=== PATIENT | male | born 1995 | race Caucasian/White ===

== ENCOUNTER 2017-06-25 20:24 | Day surgery (SDC) | payer OTHER ==
[2017-06-25 21:50] LABS: BASO # 0.1 10^3/uL (0.0-0.2); BASO % 0.3 % (0.0-1.0); HEMATOCRIT 42.4 % (42.0-52.0); HEMOGLOBIN 14.5 g/dl (14.0-18.0); IMMATURE GRANULOCYTE % 0.4 % (0-3.0); LYMPH # 0.9 10^3/uL (1.5-6.5); LYMPH % 5.1 % (24.0-44.0); MEAN CORPUSCULAR HEMOGLOBIN 28.8 pg (27.0-33.0); MEAN CORPUSCULAR HGB CONC 34.2 g/dl (32.0-36.5); MEAN CORPUSCULAR VOLUME 84.3 fl (80.0-96.0); MONO # 0.5 10^3/uL (0.0-0.8); MONO % 2.5 % (0.0-5.0); NEUTROPHILS # 16.4 10^3/uL (1.8-7.7); NEUTROPHILS % 91.7 % (36.0-66.0); PLATELET COUNT, AUTOMATED 269 10^3/uL (150-450); RED BLOOD COUNT 5.03 10^6/uL (4.30-6.10); RED CELL DISTRIBUTION WIDTH 12.7 % (11.5-14.5); WHITE BLOOD COUNT 17.9 10^3/uL (4.0-10.0)
[2017-06-25 22:09] LABS: ALBUMIN 4.8 GM/DL (3.2-5.2); ALBUMIN/GLOBULIN RATIO 1.55 (1.00-1.93); ALKALINE PHOSPHATASE 83 U/L (45-117); ALT/SGPT 27 U/L (12-78); ANION GAP 7 MEQ/L (8-16); AST/SGOT 21 U/L (7-37); BILIRUBIN,TOTAL 1.6 MG/DL (0.2-1.0); BLOOD UREA NITROGEN 14 MG/DL (7-18); CALCIUM LEVEL 9.5 MG/DL (8.5-10.1); CARBON DIOXIDE LEVEL 29 MEQ/L (21-32); CHLORIDE LEVEL 102 MEQ/L (98-107); CREATININE FOR GFR 0.95 MG/DL (0.70-1.30); GLOMERULAR FILTRATION RATE > 60.0 (>60); GLUCOSE, FASTING 102 MG/DL (70-100); POTASSIUM SERUM 3.9 MEQ/L (3.5-5.1); SODIUM LEVEL 138 MEQ/L (136-145); TOTAL PROTEIN 7.9 GM/DL (6.4-8.2)
[2017-06-25] MEDS: NS 1,000 ML IV (22:30)
[2017-06-25] MEDS: KETOROLAC 30 MG/ML VIAL (J1885) IV (22:30)
[2017-06-25] MEDS: ONDANSETRON 4MG/2ML VIAL (J2405) IV (22:31)
[2017-06-25 23:17] LABS: KETONE, URINE AUTO RFX 1+ mg/dL (NEGATIVE); LEUKOCYTE ESTERASE UR AUTO RFX NEGATIVE (NEGATIVE); NITRITE, URINE AUTO RFX NEGATIVE (NEGATIVE); RBC, URINE AUTO RFX 0 /HPF (0-3); SPECIFIC GRAVITY UR AUTO RFX 1.019 (1.002-1.035); SQUAM EPITHELIAL CELL UR AURFX 0 /HPF (0-6); WBC, URINE AUTO RFX 0 /HPF (0-3)
[2017-06-25] MEDS ORDERED: GASTROGRAFIN SOLUTION 30ML (Q9963) As Ordered (23:20)
[2017-06-25] MEDS: GASTROGRAFIN SOLUTION 30ML PO ×2 (23:30)
[2017-06-26] MEDS ORDERED: ISOVUE-370 76% 100ML VIAL (Q9967) As Ordered (00:41)
[2017-06-26 00:53] LABS: CHLAMYDIA DNA AMPLIFICATION NEGATIVE (NEGATIVE); GC DNA AMPLIFICATION NEGATIVE (NEGATIVE)
[2017-06-26] MEDS ORDERED: LR 1,000 ML IV (06:00)
[2017-06-26] MEDS: PIPERACILLIN/TAZOBACTAM SOD 3.375 GM in APPROPRIATE DILUENT 1 EA IV ×3 (06:10→17:38)
[2017-06-26] MEDS ORDERED: fentaNYL 100 MCG/2 ML INJECTION (J3010) As Ordered (08:07)
[2017-06-26] MEDS ORDERED: ROCURONIUM BROMIDE 50 MG/5 ML VIAL As Ordered (08:07)
[2017-06-26] MEDS ORDERED: ONDANSETRON 4MG/2ML VIAL (J2405) As Ordered (08:07)
[2017-06-26] MEDS ORDERED: PROPOFOL 200 MG/20 ML VIAL As Ordered (08:07)
[2017-06-26] MEDS ORDERED: METOCLOPRAMIDE INJ 10MG/2ML VIAL (J2765) As Ordered (08:07)
[2017-06-26] MEDS ORDERED: NEOSTIGMINE 10 MG/10 ML VIAL (J2710) As Ordered (08:45)
[2017-06-26] MEDS ORDERED: GLYCOPYRROLATE INJ 0.2 MG/ML 2 ML VIAL As Ordered ×2 (08:45)
[2017-06-26] MEDS ORDERED: KETOROLAC 60 MG/2 ML VIAL (J1885) As Ordered (08:50)
[2017-06-26] MEDS: BUPIVACAINE HCL 0.25% 30 ML VIAL As Ordered (09:01)
[2017-06-26] MEDS ORDERED: NORCO, ANEXSIA 5/325MG TABLET (HYDROcodone/ACETAMINOPHEN) PO (09:15)
[2017-06-26] MEDS ORDERED: ONDANSETRON 4MG/2ML VIAL (J2405) IV ×2 (09:15→10:00)
[2017-06-26] MEDS: LR 1,000 ML IV ×3 (09:15→17:37)
[2017-06-26] MEDS ORDERED: MORPHINE 4 MG/ML 1ML VIAL (J2270) IV (09:15)
[2017-06-26] MEDS ORDERED: PERCOCET 5MG/325MG TAB PO (10:00)
[2017-06-26] MEDS ORDERED: fentaNYL 100 MCG/2 ML INJECTION (J3010) IV (10:00)
[2017-06-26] MEDS ORDERED: METOCLOPRAMIDE INJ 10MG/2ML VIAL (J2765) IV (10:00)
[2017-06-26] MEDS: ACETAMINOPHEN TAB 650MG DOSE (2X325MG) PO ×2 (12:11→22:34)
[2017-06-26] MEDS: SENOKOT S TAB PO ×2 (13:46→21:59)
[2017-06-26] MEDS: KETOROLAC 30 MG/ML VIAL (J1885) IV (16:07)
[2017-06-27] MEDS: PIPERACILLIN/TAZOBACTAM SOD 3.375 GM in APPROPRIATE DILUENT 1 EA IV ×2 (00:10→05:51)
[2017-06-27] MEDS: KETOROLAC 30 MG/ML VIAL (J1885) IV (02:06)
[2017-06-27] MEDS: LR 1,000 ML IV (04:38)
[2017-06-27] MEDS: ACETAMINOPHEN TAB 650MG DOSE (2X325MG) PO (04:39)
[2017-06-27 06:25] LABS: HEMATOCRIT 39.2 % (42.0-52.0); MEAN CORPUSCULAR HEMOGLOBIN 28.8 pg (27.0-33.0); MEAN CORPUSCULAR HGB CONC 33.2 g/dl (32.0-36.5); MEAN CORPUSCULAR VOLUME 86.7 fl (80.0-96.0); PLATELET COUNT, AUTOMATED 204 10^3/uL (150-450); RED BLOOD COUNT 4.52 10^6/uL (4.30-6.10); WHITE BLOOD COUNT 4.6 10^3/uL (4.0-10.0)
[2017-06-27] MEDS: SENOKOT S TAB PO (09:03)
== END 2017-06-27 11:35 | disposition home or self-care (01) ==
LOC: M SDC 06-27 11:35 → M PED 06-26 05:15 → M ED 20:24
DX: K35.80 Unspecified acute appendicitis (principal)
CPT/HCPCS: 44970